=== PATIENT | male | born 1940 | race Caucasian/White ===

== ENCOUNTER 2017-03-22 12:30 | Outpatient (RCR) | payer MEDICARE, SELFPAY ==
--- NOTE | 2017-03-09 15:16 | HP.PTEVAL_ITS ---
Patient's Visit Information JIMMIE JAIN is a 76 year old M referred to Physical Therapy by Chino Azar MD with a diagnosis of Left Hip Pinning 02/18/17. Date of Evaluation: 03/09/17 Physical Therapist: Mary Luna - Visit Plan Frequency: 2x /Week Duration: 3 Weeks Plan: Focus on LE strength with functional mobility - Subjective Subjective: Fell at home on the driveway was transferred to [facility] and then was transferred to [place]- had the pinning by Dr. Azar and then they sent him back to [facility] for rehab. Was in [facility] rehab for about a week then headed home. One story home with his with 3 stairs to get in which he built with [address] secondary to Macular Degeneration but is fully I. Wants to get back to doing all the normal things such as getting on the tractor to mow the lawn. Patient reports that the hip was painful until today. He got up and now it doesn't hurt. pain is located on the lateral aspect of the hip. Worst:5/10 Agg: turning wrong Best: 0/10 Eases: Tylenol, not twisting. Describes the pain as dull and constant hurt. No radiating pain- no N/T. L4- L5 are partially crushed so he gets up and moves a lot to maintain comfort. Sleep: not disturbed- taking Tylenol before bed. Went back to see MD who was happy with everything. Took x-rays and all is good. PMHx/Meds: no changes since at [facility]. - Objective Posture: FH, RS, Increased kyphosis. Gait: slightly antalgic- FWW- decreased stance on the left LE. Stairs: asc/desc 8 recip with 2 HR- poor control. HR/ TR: able without incidence. Balance: WS but unable to SLS. ROM: WNL. Sensation: WNl. Strength: Ankle: 5/5, Knee: 5/5, Hip: 4/5 throughout Core: fair - Goals Goal 1:: Patient will be I with HEP and progression Goal Time Frame: 4-6 Weeks Goal 2:: Patient will ambulate >300 feet with a normalized gait pattern with LRD Goal Time Frame: 4-6 Weeks Goal 3:: Patient will asc/desc 8 recip with 1 HR and good control Goal Time Frame: 4-6 Weeks Goal 4:: Patient will report return to all ADL's with 0/10 pain Goal Time Frame: 4-6 Weeks - Rehabilitation Potential Physical Therapy Diagnosis: Patient presents with hypomobility s/p left hip pinning- she has decreased strength and functional mobility. Rehabilitation Potential: Good - Anticipated Interventions Patient/Client Instruction: Educate patient on: Benefits of Fitness Program For the Purpose of:: To improve performance and independence with ADL's Therapeutic Exercise to Include: Strength training, Endurance training, Balance training, Agility training, Body mechanics, Postural training, Gait and locomotor training, Dynamic Lumbar Stabilization For the Purpose of:: To improve muscle performance and motor function Cryotherapy (ice pack, ice massage): Yes Thermo therapy (hot pack): Yes Ultrasound (thermal/non thermal): No Thank you for the opportunity to evaluate your patient. For Medicare and Medicare HMO plans, please review the plan of care and approve it. It will need to be FAXED BACK to us at [phone] for Medicare purposes. Please let me know if there are questions or concerns regarding this plan of care. Physician Signature: Date:
--- NOTE | 2017-06-13 10:48 | HP.PT.NRP ---
HP - Discharge Summary (1) - Patient Information JIMMIE JAIN was seen in my office for initial evaluation on 03/09/17. The following Plan of Care was established for this patient: Initial Frequency: 2x /Week Initial Duration: 3 Weeks - Anticipated Interventions Patient/Client Instruction: Educate patient on: Benefits of Fitness Program For the Purpose of:: To improve performance and independence with ADL's Therapeutic Exercise to Include: Strength training, Endurance training, Balance training, Agility training, Body mechanics, Postural training, Gait and locomotor training, Dynamic Lumbar Stabilization For the Purpose of:: To improve muscle performance and motor function Cryotherapy (ice pack, ice massage): Yes Thermo therapy (hot pack): Yes Ultrasound (thermal/non thermal): No This patient was last seen in our office . Pertinent comments regarding their Physical therapy will appear below: Patient has not attended therapy in 4 weeks and is appropriate for d/c at this time. At this point I will be discontinuing this patient from physical therapy. I would be happy to see this patient again in the future if found appropriate by the physician. Thank you! Mary Luna
== END 2017-03-22 19:00 | disposition home or self-care (01) ==
LOC: PT 12:30
PROVIDERS: Family Provider Internal Medicine; PCP Internal Medicine; Visit Provider Orthopaedic Surgery
DX: S72.002D Fracture of unspecified part of neck of left femur, subsequent encounter for closed fracture with routine healing (principal)
CPT/HCPCS: 97110; 97162

== ENCOUNTER 2018-11-13 03:05 | Emergency (ER) | payer MEDICARE, SELFPAY ==
[2018-11-13 03:10] VITALS: BP 123/71; PULSE 84; RESP 18; TEMP 36.5; O2SAT 93; BMI 17.9
--- NOTE | 2018-11-13 03:57 | CT_ITS ---
STUDY: CT BRAIN WITHOUT CONTRAST REASON FOR EXAM: Male, 78 years old. Fall RADIATION DOSAGE (If Supplied By Facility): CTDIvol = ( 44.99 ) mGy, DLP = ( 745.49 ) mGycm TECHNIQUE: Transaxial CT imaging of the brain was performed without administration of intravenous contrast material. Individualized dose optimization techniques were used for this CT. COMPARISON: No relevant priors. FINDINGS: Normal soft tissue structures. Normal calvarium. Right frontal encephalomalacia. There is mild cerebral atrophy with widening of the extra-axial spaces and ventricular dilatation. There are areas of decreased attenuation within the white matter tracts of the supratentorial brain, consistent with microvascular disease changes. Normal basal ganglia and thalami. Normal brainstem. There is mild cerebellar atrophy. There is no intracranial hemorrhage. There are no findings of an acute ischemic infarction. Normal visualized paranasal sinuses. Opacification of the bilateral inferior mastoid air cells with mild septal sclerosis consistent with chronic disease. Normal appearance of ossicles. Intracranial arteriosclerosis of the carotid and vertebral arteries. There are postoperative orbital changes. Its CT/Brain/Head without Contrast IMPRESSION: Chronic involutional changes of the brain. 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 There is no acute intracranial pathology. Electronically Signed: Patti Serrano MD at 4:48 EDT , Service support ,
--- NOTE | 2018-11-13 03:57 | EKG12_ITS ---
Test Reason : FALL Blood Pressure : / mmHG Vent. Rate : 078 BPM Atrial Rate : 078 BPM P-R Int : 148 ms QRS Dur : 076 ms QT Int : 386 ms P-R-T Axes : 062 -09 078 degrees QTc Int : 440 ms Normal sinus rhythm Normal ECG Confirmed by MARYANN SEGURA, BRITTON ([id number]), photographic editor HAROON WELCH ([id number]) on 11/14/2018 9:21:47 AM Referred By: ROBYN Confirmed By:BRITTON WOLF MD
--- NOTE | 2018-11-13 03:59 | ED.DCSUM_ITS ---
- ER Visit Summary Date of Service: 11/13/18 Chief Complaint: Fall History of Present Illness: The patient is a 78 M who presents with a fall that occurred tonight. Patient does not remember what caused him to fall. Patient is unsure if he lost consciousness. Patient was having some shortness of breath prior to the fall. Patient was sitting on the toilet when he fell. Patient landed on his right shoulder. Patient states the pain is worse with any movement of his right shoulder. Patient denies any head injury. Patient denies any paresthesias. Patient does admit to some general weakness. Patient denies any recent fevers or chills. Physical Examination: Vital signs are stable. Patient is afebrile. Patient is in no acute distress. Oral mucosa is pink and moist. Neck is supple. Trachea is midline. There is no JVD noted. Heart was regular rate and rhythm. Lungs are clear and equal bilaterally. Abdomen is soft. Bowel sounds are normal. There is no tenderness noted. Musculoskeletal exam reveals tenderness over the right distal clavicle. Range of motion of the right shoulder was limited in all motion secondary to pain. Cranial nerves II through XII are intact. There are no focal motor or sensory deficits noted. Test Results: CT scan of the brain was obtained. There is no acute intracranial abnormality. There is a remote infarct in the left frontal lobe. Chest x-ray does not show any acute cardiopulmonary process. There are chronic changes consistent with COPD. There is no pneumothorax noted. X-rays of the right clavicle were obtained. There is a displaced midclavicular fracture. CBC shows a mild anemia with hemoglobin of 11.7 and hematocrit 35.3. BUN was slightly elevated at 46. EKG showed a normal sinus rhythm with a rate of 78. There are no acute ST or T wave changes. This was unchanged compared to previous EKG dated 02/17/2017. Troponin was normal. Emergency Department Course and Treatment: Patient was given a dose of [place] here. Patient was placed in a sling for his right clavicle fracture. Patient was given a prescription for [place]. Patient was instructed to follow-up with his primary care physician in 5 to 7 days. Patient and family understood and were agreeable with the plan. All questions were answered. As the patient was being discharged he stood up and had a syncopal episode. This was witnessed by the nurse caring for him. Patient patient will be admitted. Patient and family are requesting transfer to [facility]. Case was discussed with the hospitalist there, Dr. Solares. He accepted the patient for transfer. Patient will be transferred there. Patient understood and was agreeable with the plan. All questions were answered. Disposition: Transfer to [facility] Impression: 1. Right clavicle fracture 2. Fall 3. Syncope 4. Upper GI bleed This note was generated with Clip dictation software. It may contain incorrect words, spelling, and punctuation that were not noted in review of the chart prior to signing ED Disposition - Plan for ED Patient: Disposition: Acute Care Hospital - Other Diagnosis: Right clavicle fracture, Fall, Gastrointestinal bleeding, upper, Syncope and collapse Instructions: FALL, Uncertain Cause Prescriptions: Hydrocodone Bitart/Apap 5-325 [[place] 5MG-325MG] 1 tab PO Q6H PRN PRN 3 Days #10 tab PRN Reason: Pain Prescription Printed Referrals: Shayna Donohue MD [Primary Care Provider] - 3-5 Days
[2018-11-13] MEDS: Morphine 4 MG/ML Syringe IV (04:14)
[2018-11-13 04:26] LABS: Absolute Lymphocyte Count 1.08 X10^3/uL (0.83-4.51); Absolute Neutrophil Count 8.2 X10^3/uL (2.0-7.7); Basophil# 0.04 X10^3/uL; Basophil% 0.4 % (0-1); Eosinophil# 0.03 X10^3/uL; Eosinophils% 0.3 % (0-5); Hematocrit 35.3 % (40-54); Hemoglobin 11.7 g/dL (13.0-16.5); Lymphocyte # 1.08 X10^3/ul (4.0); Lymphocyte % 10.8 % (19-41); Mean Corp Hgb Conc 33.1 g/dL (32-36); Mean Corpuscular Hgb 29.8 pg (27.0-32.0); Mean Corpuscular Volume 89.8 fL (80-94); Mean Platelet Vol. 9.9 fl (6.2-12.0); Monocyte# 0.62 X10^3/uL; Monocyte% 6.2 % (0-10); NRBC Flagged by Analyzer 0 % (0-5); Neutrophil # 8.19 X10^3/uL (2.7-7.7); Neutrophil % 81.9 % (47-70); Platelet Count 163 K/mm3 (150-450); RBC Distribution Width CV 15.3 % (11.6-14.6); RBC Distribution Width SD 50.6 fl (35.1-43.9); Red Blood Count 3.93 M/mm3 (4.6-6.2)
--- NOTE | 2018-11-13 04:40 | RAD_ITS ---
STUDY: X-RAY CHEST REASON FOR EXAM: Male, 78 years old. Fall exam, shortness of breath TECHNIQUE: Frontal and lateral views of the chest. 3 images COMPARISON: 02/17/2017. 06/20/2015. Single frontal views only FINDINGS: There is an acute displaced fracture of the right mid clavicle. There is no demonstrated pneumothorax. There is demineralization of osseous structures. Emphysema. Linear interstitial changes likely scarring without change. Mild blunting of the right costophrenic angle. Normal size heart. Normal mediastinum and nkechi. Normal visualized pulmonary arteries. Normal visualized aortic arch and descending thoracic aorta. There is demineralization of the osseous structures. Loss of vertebral body height of the mid and lower thoracic spine without significant change. Normal visualized ribs, clavicles, and shoulders. There is no demonstrated abnormality of the visualized soft tissue structures of the upper abdomen. RAD/Chest PA and Lateral IMPRESSION: COPD/emphysema. Displaced right midclavicular fracture. Osteoporosis, multilevel compression injury of the thoracic and upper lumbar spine. There is no demonstrated pneumothorax. Electronically Signed: Patti Serrano MD at 5:17 EDT , Service support ,
--- NOTE | 2018-11-13 04:40 | RAD_ITS ---
STUDY: X-RAY - RIGHT CLAVICLE REASON FOR EXAM: Male, 78 years old. Fall exam, right shoulder pain TECHNIQUE: 2 view(s) of the clavicle. COMPARISON: None. FINDINGS: Acute foreshortened inferiorly displaced fracture of the right mid clavicle, foreshortening by 3.6 cm length. There is degenerative arthrosis of the acromioclavicular joint without inferior osseous prominence. Normal visualized sternoclavicular articulation. There is demineralization of osseous structures. There is no demonstrated pneumothorax. RAD/Clavicle IMPRESSION: Acute inferiorly displaced foreshortened mid clavicular fracture. Osteoporosis and degenerative changes. Electronically Signed: Patti Serrano MD at 5:19 EDT , Service support ,
[2018-11-13 04:41] LABS: Anion Gap 8 (5-15); BUN 46 mg/dL (7-18); BUN/Creat Ratio 53.7 RATIO (10-20); Calcium,Total 7.9 mg/dL (8.5-10.1); Chloride 108 mmol/L (98-107); Creatinine, Serum 0.86 mg/dL (0.70-1.30); EST Glomerular Filtration Rate 92 mL/min (>60); Est Glom Filt Rate - Afr Amer 111 mL/min (>60); Estimated Creatinine Clearance 63.59 ml/min; Glucose 106 mg/dL (74-106); Potassium 4.2 mmol/L (3.5-5.1); Sodium Level 142 mmol/L (136-145)
[2018-11-13 06:14] VITALS: BP 88/56; PULSE 78; RESP 14; O2SAT 92
--- NOTE | 2018-11-13 06:14 | ED.RN ---
PT REFUSED TO GIVE URINE, FAMILY UPSET ABOUT LENGTH OF TIME VISIT IS TAKING.
[2018-11-13 06:29] VITALS: BP 93/56; PULSE 88; RESP 24; O2SAT 98
[2018-11-13] MEDS: 0.9% Normal Saline 1,000 ML 1000 ML IV (06:36)
--- NOTE | 2018-11-13 06:36 | ED.RN ---
ATTEMPTED TO WALK PT TO BATHROOM WITH AID. PT GOT TO DOOR OF ROOM AND PASSED OUT. WHEELCHAIR WAS BROUGHT TO ROOM. PT WITH SNORING RESPIRATIONS. PT PLACED BACK IN BED, MONITOR PLACED AND VITAL SIGNS TAKEN. PT SYNCOPAL EPISODE LASTED APPROX 30 SECONDS. FAMILY MEMBER AT BEDSIDE AND UPDATED. PENDING ADMISSION.
[2018-11-13 06:40] LABS: Bedside Glucose 131 mg/dL (70-110)
[2018-11-13] MEDS: HYDROcodone Bitartrate/Apap 5/325 Tablet PO (06:46)
[2018-11-13 09:23] VITALS: BP 105/69; PULSE 90; RESP 16; RESP 18; O2SAT 97
== END 2018-11-13 09:27 | disposition short-term general hospital (02) ==
PROVIDERS: Emergency Provider Emergency Medicine; Family Provider Internal Medicine; PCP Internal Medicine
DX: S42.021A Displaced fracture of shaft of right clavicle, initial encounter for closed fracture (principal); W18.11XA Fall from or off toilet without subsequent striking against object, initial encounter; Y93.89 Activity, other specified; R55 Syncope and collapse; K92.2 Gastrointestinal hemorrhage, unspecified; J44.9 Chronic obstructive pulmonary disease, unspecified; Z79.82 Long term (current) use of aspirin; Z86.73 Personal history of transient ischemic attack (TIA), and cerebral infarction without residual deficits
CPT/HCPCS: 70450; 71046; 73000; 80048; 82274; 82962; 84484; 85025; 93005; 96361; 96374; 99285; J7030; A4216

== ENCOUNTER 2021-06-01 15:07 | Emergency (ER) | payer MEDICARE, SELFPAY ==
[2021-06-01 15:09] VITALS: BP 144/77; PULSE 87; RESP 16; TEMP 36.8; O2SAT 95; BMI 18.1
--- NOTE | 2021-06-01 15:27 | EKG12_ITS ---
Test Reason : SOB Blood Pressure : / mmHG Vent. Rate : 084 BPM Atrial Rate : 084 BPM P-R Int : 182 ms QRS Dur : 080 ms QT Int : 388 ms P-R-T Axes : 084 -27 083 degrees QTc Int : 458 ms Normal sinus rhythm Normal ECG Confirmed by MARYANN SEGURA, BRITTON ([id number]), publication editor HAROON WELCH ([id number]) on 06/02/2021 10:30:16 AM Referred By: JAG/NUSRAT Confirmed By:BRITTON WOLF MD
--- NOTE | 2021-06-01 15:29 | EDS_ITS ---
HPI History of Present Illness Chief Complaint: Shortness of Breath Detail of Chief Complaint: Shortness of breath and respiratory distress Informant: patient and family (Granddaughter) Onset/Context/Timing Onset: Weeks (1 week) Context: unknown Timing: Continuous and Waxes and wanes Quality: Positive for Dyspnea on exertion and Wheezing; Negative for Orthopnea and PND Current Severity: Moderate Maximum Severity: Severe Worsened by: Exertion (Patient presently is only able to walk 20 feet before he has to stop because of shortness of breath) and Coughing; Not Worsened By Lying flat Relieved by: Nothing Associated Symptoms cough; Negative for ear pain, fever, sore throat, subjective, chills or sweats Chest Pain: Positive for None Narrative Narrative: Patient is a 81-year-old male who present lives alone. He has history of COPD. He is on no medication other than Tylenol. His was admitted to a nursing facility. Since she was admitted October or November of last year he has been smoking. He had not been smoking for some time prior to this. He does admit to coughing. States cough is productive. 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 He has been vaccinated for COVID. Is uncertain whether he received the influenza vaccine this year or Pneumovax. He denies headache, visual, ocular auditory symptoms. He denies chest discomfort. He denies leg pain, swelling or discoloration. He denies history o f VTE. He denies risk factors. He denies nausea, vomiting or diarrhea. He denies dysuria, frequency, urgency or hematuria. Granddaughter is concerned because he looks very thin and believes he has lost 10 pounds over the past month unintentionally. PE Risk Factors: Negative for Cancer, OCP + Smoking + > 35, Prior DVT or PE, Recent immobilization, Recent surgery and Recent travel Prior similar symptoms: No Recent Illness/Hospitalization: No PFSH PFSH Home Medications C,E,zinc,copper [id number] 1 ea PO DAILY 11/13/18 [History Last Taken Unknown] aspirin 81 mg PO DAILY 11/13/18 [History Last Taken Unknown] doxycycline monohydrate 100 mg PO BID #10 capsule 06/01/21 [Rx Last Taken Unknown] fluticasone propion-salmeterol [Advair Diskus] 1 inh INHALATION BID #1 ea 06/01/21 [Rx Last Taken Unknown] prednisone 60 mg PO DAILY #15 tablet 06/01/21 [Rx Last Taken Unknown] Allergy/AdvReac Type Severity Reaction Status Date / Time fentanyl AdvReac Other Verified 06/01/21 15:09 oxycodone AdvReac Other Verified 06/01/21 15:09 sleeping pills AdvReac Other Uncoded 06/01/21 15:09 Social History (Updated 06/01/21 @ 15:[address] Rashawn Cook MD) household members: none Smoking Status: Current every day smoker tobacco type: cigarettes substance use type: does not use ROS ROS ED Constitutional Constitutional ED: Reports weight loss; Denies chills, fever(s) or sweats Eyes Eyes: Reports other Details: Patient is legally blind ; Denies blurry vision, change in vision or diplopia ENT ENT ED: Denies ear pain, rhinorrhea or sore throat Cardiovascular Cardiovascular: Denies chest pain, orthopnea, palpitations, paroxysmal nocturnal dyspnea or racing heartbeat Respiratory/Chest Respiratory/Chest: Reports cough, dyspnea, dyspnea on exertion and sputum; Denies orthopnea or paroxysmal nocturnal dyspnea Gastrointestinal Gastrointestinal: Reports other Details: Patient does not know the color of her stool because he cannot see the color of the stool. ; Denies abdominal pain, constipation, diarrhea, nausea or vomiting Genitourinary Genitourinary ED: Denies dysuria or urinary frequency Musculoskeletal Musculoskeletal: Denies arthralgias, back pain, myalgias or neck pain Integumentary Denies rash Neurologic Neurologic: Reports weakness; Denies headache(s) or paresthesias Endocrine Endocrinology: Denies polydipsia, polyphagia or polyuria Hematologic/Lymphatic Hematologic/Lymphatic: Denies easy bleeding or easy bruising EXAM Physical Exam Const Vital Signs: 06/01/21 15:09 06/01/21 15:40 06/01/21 15:44 Temperature 98.2 F Temperature Source Temporal Pulse Rate 87 73 Respiratory Rate 16 18 22 H Respiratory Effort Short of Breath Respiratory Depth Shallow Respiratory Pattern Normal Tachypnea Blood Pressure 144/77 H Blood Pressure Mean 99 Pulse Ox 95 94 Oxygen Delivery Method Room Air Room Air 06/01/21 16:31 Temperature 98.4 F Temperature Source Temporal Pulse Rate 78 Respiratory Rate 16 Respiratory Effort Respiratory Depth Respiratory Pattern Blood Pressure 142/78 H Blood Pressure Mean 99 Pulse Ox 95 Oxygen Delivery Method Room Air Positive well developed and cachectic General Appearance ED: well developed and cachectic; Negative for NAD Nutritional Appearance: cachectic HEENT Reports TM's clear and dry mucous membranes; Denies moist mucous membranes HEENT Narrative: Uvula midline. There is no angioedema. atraumatic; Negative for tenderness Tympanic Membrane ED: Yes TM's clear Mouth ED: Yes dry mucous membranes Mouth: dry mucous membranes Eyes PERRL and EOMs intact bilaterally General Eye ED: Negative for pale conjunctiva or scleral icterus Neck no lymphadenopathy, supple, no meningeal signs and no JVD Neck Narrative: Trachea is midline. There is no in-store expiratory stridor. Resp No normal respiratory effort and No clear to auscultation bilaterally Effort and Inspection: other Expiratory phase is prolonged significantly. ; Negative for pain with movement Auscultation: rales bilateral base, wheezes expiratory wheezes, scattered wheezes and throughout and diminished lung sounds Cardio regular rate, regular rhythm, S1 normal heart sound, S2 normal heart sound and no murmurs GI non-tender, non-distended and no masses Auscultation: normoactive bowel sounds Palpation: soft and tender Back/Spine no CVA tenderness and normal to inspection Extremity normal to inspection Extremity Narrative: Minimal bilateral pedal edema. General Extremety ED: Yes edema; Negative for tenderness General Extremity: edema Neuro oriented x3 and CN's II-XII intact bilaterally [place] Coma Scale: document GCS findings Spontaneous Obeys Commands Oriented 15 Sensorium / Orientation: alert Motor Exam: general weakness Psych mental status grossly normal Mood & Affect: depressed Skin no wounds General Skin Exam: Negative for jaundice Lesions: no lesions Rashes: no rashes MDM MDM MDM Narrative Medical decision making narrative: Patient with respiratory distress. Will obtain VBG to determine if patient is retaining CO2. He was treated with Solu- Medrol, DuoNeb and albuterol. Chest x-ray was obtained to evaluate for pneumonia. Doubt pneumothorax. EKG to rule out cardiac ischemia. CBC to assess white count and rule out anemia. Since he had a 10 pound unintentional weight loss comprehensive metabolic panel was obtained to assess electrolytes, renal function as well as calcium, and alkaline phosphatase since there is concerned this may be due to malignancy. Patient was reassessed at 03/13/2000. He is in no respiratory distress. His lungs are clear. He has fair movement of air bilaterally. He was informed of his results as well as his granddaughter. Plan is to instruct patient how to use an inhaler and discharged with prescription for prednisone, doxycycline and Advair. He is to follow-up with his primary care physician who is an physician assistant primary care at [facility] Lab Data Attestation: I reviewed the patient's lab results. Labs: Laboratory Results - last 24 hr 06/01/21 06/01/21 16:14 16:14 WBC 6.5 RBC 4.62 Hgb 14.9 Hct 42.7 MCV 92.4 MCH 32.3 H MCHC 34.9 RDW Std Deviation 47.0 H RDW Coeff of Miya 13.8 Plt Count 204 MPV 9.7 Immature Gran % (Auto) 0.200 Neut % (Auto) 69.1 Lymph % (Auto) 20.9 Rankin % (Auto) 9.0 Eos % (Auto) 0.5 Baso % (Auto) 0.3 Absolute Neuts (auto) 4.5 Absolute Lymphs (auto) 1.37 Nucleated RBC % 0 Sodium 133 L Potassium 3.5 Chloride 98 Carbon Dioxide 28.0 Anion Gap 7 BUN 10 Creatinine 0.63 L Estim Creat Clear Calc 48.32 Est GFR (MDRD) Af Amer 158 Est GFR (MDRD) Non-Af 131 BUN/Creatinine Ratio 16.0 Glucose 99 Calcium 8.6 VBG was obtained to assess for hypercapnia. Patient is breathing faster and 16 is actually tachypneic. His blood gas reveals a pH of 7.41, PCO2 40, PO2 of 34.7 bicarb 25.4 and a base excess of 0.7. Saturation 67.4%. This is a venous blood gas. ABG Data ABG results: ABG 06/01/21 16:19 Specimen Type KAVEH VBG pH 7.41 VBG pO2 35 VBG HCO3 25 VBG Total CO2 27 VBG O2 Sat (Calc) 67 VBG Base Excess 1 POC Mix VBG pCO2 Pt Tmp 40.0 L O2 Delivery Device Room Air Radiography Chest X-Ray - ED: 1 View and Read by ED Physician (Single view portable chest x- ray was independently interpreted by me as no acute process. Patient has hyperaeration with significant fibrotic changes and findings consistent with COPD. Cardiac silhouette and size unremarkable. 3 hilar regions unremarkable. [place] structures are unremarkable. The) Diagnostic Testing: Clinical Impression(s) from Imaging Studies Chest X-Ray 06/01/21 16:24 IMPRESSION: Emphysema without pneumonia or atelectasis. Electronically Signed: Juan J Knight MD at 16:38 EDT , EKG Initial EKG: Attestation: I personally reviewed and interpreted this EKG as follows: Interpretation: Sinus Rhythm (Ventricular rate 84. SD interval 182 ms. Cures duration 80 ms. QT duration 208 ms. [place] is normal. EKG is normal.) Discharge Plan Triage Chief Complaint: Shortness of Breath ED Provider: Rashawn Cook Dx/Rx/DC Orders Clinical Impression: Acute exacerbation of COPD with asthma, Bronchitis, Tobacco use Instructions: ED COPD Flare Prescriptions: New prednisone 20 MG tablet 60 mg PO DAILY Qty: 15 RF: 0 doxycycline monohydrate 100 MG capsule 100 mg PO BID Qty: 10 RF: 0 fluticasone propion-salmeterol [Advair Diskus] 250-50 mcg/dose blister with device 1 inh inhalation BID Qty: 1 RF: 2 No Action aspirin 81 MG tablet,delayed release (DR/EC) 81 mg PO DAILY RF: 0 C,E,zinc,copper [id number] 1 EACH capsule 1 ea PO DAILY RF: 0 Primary Care Provider: SUZANNE CHICAS Referrals: SUZANNE CHICAS MD [Primary Care Provider] - 3-5 Days Activity Restrictions/Additional Instructions: It is in your best interest to stop smoking immediately Disposition Disposition: Home, Self Care
[2021-06-01 15:40] VITALS: PULSE 73; RESP 18
[2021-06-01] MEDS: Ipratropium/Albuterol Sulfate 3 ML AMPUL.NEB INHALATION (15:40)
[2021-06-01] MEDS: Albuterol 2.5 MG/3 ML VIAL.NEB. INHALATION ×3 (15:42→15:58)
[2021-06-01 15:44] VITALS: RESP 22; O2SAT 94
[2021-06-01] MEDS: MethylPREDNISolone 125 MG/2 ML Vial IV (16:17)
--- NOTE | 2021-06-01 16:24 | RAD_ITS ---
STUDY: X-RAY CHEST REASON FOR EXAM: Male, 81 years old. resp distress TECHNIQUE: Single AP portable view of the chest. COMPARISON: 11/13/2018 FINDINGS: There is hyperinflation of the lungs consistent with chronic obstructive lung disease (COPD). There is no demonstrated pleural abnormality. Normal size heart. Normal mediastinum and nkechi. Normal visualized pulmonary arteries. Normal visualized aortic arch and descending thoracic aorta. Normal visualized thoracic spine. Healed fracture of the right clavicle. There is no demonstrated abnormality of the visualized soft tissue structures of the upper abdomen. RAD/Chest 1 View (Portable) IMPRESSION: Emphysema without pneumonia or atelectasis. Electronically Signed: Juan J Knight MD at 16:38 EDT ,
[2021-06-01 16:26] LABS: Blood Gas Specimen Type VEN; O2 Delivery Device Room Air; VBG BASE EXCESS 1 mmol/L (-1.0-3.5); VBG Bicarbonate 25 mmol/L (22-26); VBG PO2 35 mmHg (25-40); VBG SO2 67 % (50-70); VBG TCO2 27 mmol/L (23-33); VBG pH 7.41 (7.32-7.42)
[2021-06-01 16:29] LABS: Absolute Lymphocyte Count 1.37 X10^3/uL (0.83-4.51); Absolute Neutrophil Count 4.5 X10^3/uL (2.0-7.7); Basophil# 0.02 X10^3/uL; Basophil% 0.3 % (0-1); Eosinophil# 0.03 X10^3/uL; Eosinophils% 0.5 % (0-5); Hematocrit 42.7 % (40-54); Hemoglobin 14.9 g/dL (13.0-16.5); Lymphocyte # 1.37 X10^3/ul (0.83-4.51); Lymphocyte % 20.9 % (19-41); Mean Corp Hgb Conc 34.9 g/dL (32-36); Mean Corpuscular Hgb 32.3 pg (27.0-32.0); Mean Corpuscular Volume 92.4 fL (80-94); Mean Platelet Vol. 9.7 fl (6.2-12.0); Monocyte# 0.59 X10^3/uL; NRBC Flagged by Analyzer 0 % (0-5); Neutrophil # 4.52 X10^3/uL (2.7-7.7); Neutrophil % 69.1 % (47-70); Platelet Count 204 K/mm3 (150-450); RBC Distribution Width CV 13.8 % (11.6-14.6); Red Blood Count 4.62 M/mm3 (4.6-6.2); White Blood Count 6.5 K/mm3 (4.4-11.0)
[2021-06-01 16:31] VITALS: BP 142/78; PULSE 78; PULSE 80; RESP 16; TEMP 36.9; O2SAT 95
[2021-06-01 16:49] LABS: Anion Gap 7 (5-15); BUN 10 mg/dL (7-18); Calcium,Total 8.6 mg/dL (8.5-10.1); Chloride 98 mmol/L (98-107); Creatinine, Serum 0.63 mg/dL (0.70-1.30); EST Glomerular Filtration Rate 131 mL/min (>60); Est Glom Filt Rate - Afr Amer 158 mL/min (>60); Estimated Creatinine Clearance 48.32 ml/min; Glucose 99 mg/dL (74-106); Potassium 3.5 mmol/L (3.5-5.1); Sodium Level 133 mmol/L (136-145)
[2021-06-01 17:17] LABS: Lactic Acid 1.6 mmol/L (0.4-1.9)
--- NOTE | 2021-06-03 18:19 | CM.ED ---
ER RNCM DC F/u Call: Seen in ER 06.01.21 for SOB, H/o COPD-restarted smoking. Called patient listed number and answered by dtr Dagmar. States that patient is doing fine and that her dtr just took him over some dinner. States some shaking and aware can be side effect from the medication and told patient to just take it easy. No further issues or concerns voiced at this time. JOSE Vera
== END 2021-06-01 17:45 | disposition home or self-care (01) ==
PROVIDERS: Emergency Provider Emergency Medicine; PCP Internal Medicine; Visit Provider Emergency Medicine
DX: J44.1 Chronic obstructive pulmonary disease with (acute) exacerbation (principal); J40 Bronchitis, not specified as acute or chronic; F17.210 Nicotine dependence, cigarettes, uncomplicated
CPT/HCPCS: 71045; 80048; 82803; 83605; 85025; 87811; 93005; 94640; 96374; 99251; 99282; G0463

== ENCOUNTER 2021-08-08 13:35 | Emergency (ER) | payer MEDICARE, SELFPAY ==
[2021-08-08 13:37] VITALS: BP 166/113; PULSE 86; RESP 14; TEMP 36.5; BMI 15.8
--- NOTE | 2021-08-08 13:55 | EDS_ITS ---
HPI History of Present Illness Chief Complaint: Dental Narrative Narrative: 81-year-old male with right lower jaw swelling. He states he had a dental infection about a month ago and was initially treated with an antibiotic which he took 3 times a day. He states that his infection did get better and he was supposed to follow-up with a dentist but did not because he had loss of his . He has been dealing with that and has not been to the dentist yet. Patient notes that his tooth has been swelling again on the right lower jaw for about 3 days. No fevers or chills. No difficulty swallowing or breathing. No drainage. No new trauma. [facility] Medical History AAA (abdominal aortic aneurysm) COPD (chronic obstructive pulmonary disease) Stroke Home Medications C,E,zinc,copper [id number] 1 ea PO DAILY 11/13/18 [History Last Taken Unknown] aspirin 81 mg PO DAILY 11/13/18 [History Last Taken Unknown] doxycycline monohydrate 100 mg PO BID #10 capsule 06/01/21 [Rx Last Taken Unknown] fluticasone propion-salmeterol [Advair Diskus] 1 inh INHALATION BID #1 ea 06/01/21 [Rx Last Taken Unknown] prednisone 60 mg PO DAILY #15 tablet 06/01/21 [Rx Last Taken Unknown] amoxicillin-pot clavulanate 1 tab PO BID #20 tab 08/08/21 [Rx Last Taken Unknown] Allergy/AdvReac Type Severity Reaction Status Date / Time fentanyl AdvReac Other Verified 08/08/21 13:37 oxycodone AdvReac Other Verified 08/08/21 13:37 sleeping pills AdvReac Other Uncoded 08/08/21 13:37 Surgical History History of hip replacement Social History household members: none Smoking Status: Current every day smoker tobacco type: cigarettes substance use type: does not use ROS ROS ED Constitutional Constitutional ED: Denies chills or fever(s) Eyes Eyes: Denies blurry vision ENT ENT ED: Reports other Details: Dental pain ; Denies rhinorrhea or sore throat Cardiovascular Cardiovascular: Denies chest pain or palpitations Respiratory/Chest Respiratory/Chest: Denies cough or dyspnea Gastrointestinal Gastrointestinal: Denies abdominal pain, nausea or vomiting Genitourinary Genitourinary ED: Denies dysuria or hematuria Musculoskeletal Musculoskeletal: Denies myalgias Integumentary Denies rash Neurologic Neurologic: Denies headache(s) or weakness Psychiatric Psychiatric: Denies anxiety or depression EXAM Physical Exam Const Vital Signs: 08/08/21 13:37 Temperature 97.7 F L Temperature Source Temporal Pulse Rate 86 Respiratory Rate 14 Blood Pressure 166/113 H Blood Pressure Mean 130 Positive well nourished General Appearance ED: NAD HEENT HEENT Narrative: Tooth #45 appears to be extensively decayed. There is percu ssion tenderness and surrounding gingival edema. trauma Mouth ED: Yes lips normal, Yes tongue normal and Yes salivary gland normal Mouth: lips normal, tongue normal and salivary gland normal Teeth and Gingiva: abnormal tooth and associated gingiva Positive for tenderness, caries and poor dentition Throat: posterior oropharynx normal Eyes PERRL and EOMs intact bilaterally Neck no lymphadenopathy and supple Resp normal respiratory effort Cardio regular rate and regular rhythm GI normal to inspection, nondistended, normoactive bowel sounds Neuro oriented x3 and CN's II-XII intact bilaterally Sensorium / Orientation: alert Psych mental status grossly normal Skin no rashes or lesions noted MDM MDM MDM Narrative Medical decision making narrative: Patient presenting with dental pain. Appears to be about tooth #45. Patient has multiple dental caries and focal dental decay over this tooth particularly. Mild facial swelling associated with the gingival swelling. There was patent without stridor. No trismus. No sublingual or submandibular swelling. Patient unable to tell me which antibiotic he was on but he states he missed 3 times a day which makes he think it was likely clindamycin. Patient does not have a penicillin allergy and states he has no history of MRSA therefore I will place him on Augmentin. Patient given first dose in the ER. He will follow-up with his dentist. Impression: 1. Dental abscess 2. Dental pain 3. Dental caries Lab Data Attestation: I reviewed the patient's lab results. Discharge Plan Triage Chief Complaint: Dental ED Provider: Anderson Johnson Dx/Rx/DC Orders Instructions: Dental Abscess Prescriptions: New amoxicillin-pot clavulanate 875-125 mg tablet 1 tab PO BID Qty: 20 RF: 0 No Action aspirin 81 MG tablet,delayed release (DR/EC) 81 mg PO DAILY RF: 0 C,E,zinc,copper [id number] 1 EACH capsule 1 ea PO DAILY RF: 0 prednisone 20 MG tablet 60 mg PO DAILY Qty: 15 RF: 0 doxycycline monohydrate 100 MG capsule 100 mg PO BID Qty: 10 RF: 0 fluticasone propion-salmeterol [Advair Diskus] 250-50 mcg/dose blister with device 1 inh inhalation BID Qty: 1 RF: 2 Primary Care Provider: SUZANNE CHICAS Referrals: SUZANNE CHICAS MD [Primary Care Provider] - Disposition Disposition: Home, Self Care
[2021-08-08 14:00] VITALS: PULSE 64; RESP 17
[2021-08-08] MEDS: Amox/Clavulanate 875 MG Tablet PO (14:00)
== END 2021-08-08 14:07 | disposition home or self-care (01) ==
LOC: ED 14:06
PROVIDERS: Emergency Provider Student in an Organized Health Care Education/Training Program; PCP Internal Medicine; Visit Provider Student in an Organized Health Care Education/Training Program
DX: K04.7 Periapical abscess without sinus (principal); J44.9 Chronic obstructive pulmonary disease, unspecified; K02.9 Dental caries, unspecified; F17.210 Nicotine dependence, cigarettes, uncomplicated; Z79.82 Long term (current) use of aspirin; Z86.73 Personal history of transient ischemic attack (TIA), and cerebral infarction without residual deficits
CPT/HCPCS: 99283

== ENCOUNTER 2023-02-04 19:48 | Emergency (ER) | payer MEDICARE, MEDICAID, SELFPAY ==
[2023-02-04 19:52] VITALS: BP 157/72; PULSE 90; RESP 18; TEMP 36.8; O2SAT 100; BMI 15.0
--- NOTE | 2023-02-04 20:17 | EX.ED.DYSGE1 ---
HPI History of Present Illness Chief Complaint: Other, Pain/Inj Narrative Narrative: 82-year-old male presenting with agitation. Apparently this is his first day at [facility] in hospice. There was no nurses call to explain the situation. Apparently they did not call the family or the physician that was in charge. 911 was called because the patient to a chair and window. Patient states he just wanted something for headache. He is confused and alert to self and intermittently the day. He does not know the year. PFSH [facility] Medical History AAA (abdominal aortic aneurysm) COPD (chronic obstructive pulmonary disease) Stroke Home Medications aspirin 81 mg tablet,delayed release 81 mg PO DAILY 11/13/18 [History Last Taken Unknown] vit C,E,zinc,copper-omega3 250 mg-lutein 5 mg-zeaxanthin 1 mg capsule 1 ea PO DAILY 11/13/18 [History Last Taken Unknown] doxycycline monohydrate 100 mg capsule 100 mg PO BID #10 CAPSULES 06/01/21 [Rx Last Taken Unknown] fluticasone 250 mcg-salmeterol 50 mcg/dose blistr powdr for inhalation (Advair Diskus) 1 inh inhalation BID #1 ea 06/01/21 [Rx Last Taken Unknown] prednisone 20 mg tablet 60 mg (3 x 20 mg) PO DAILY #15 TABLETS 06/01/21 [Rx Last Taken Unknown] amoxicillin 875 mg-potassium clavulanate 125 mg tablet 1 tab PO BID #20 tabs 08/08/21 [Rx Last Taken Unknown] Allergy/AdvReac Type Severity Reaction Status Date / Time fentanyl AdvReac Other Verified 02/04/23 20:01 oxycodone AdvReac Other Verified 02/04/23 20:01 Surgical History History of hip replacement Social History household members: none Smoking Status: Current every day smoker tobacco type: cigarettes substance use type: does not use ROS ROS ED Constitutional Constitutional ED: Denies chills, fever(s) or sweats Eyes Eyes: Denies blurry vision or change in vision ENT ENT ED: Denies ear pain or sore throat Cardiovascular Cardiovascular: Denies chest pain, palpitations or racing heartbeat Respiratory/Chest Respiratory/Chest: Denies cough, dyspnea or sputum Gastrointestinal Gastrointestinal: Denies abdominal pain, constipation, diarrhea, nausea or vomiting Genitourinary Genitourinary ED: Denies dysuria, hematuria or urinary frequency Musculoskeletal Musculoskeletal: Denies arthralgias, myalgias or neck pain Integumentary Denies abscess, Abrasions or rash Neurologic Neurologic: Reports headache(s); Denies paresthesias or weakness Psychiatric Psychiatric: Denies anxiety, depression, suicidal ideation or suicidal thoughts Endocrine Endocrinology: Denies polydipsia or polyuria EXAM Physical Exam Const Vital Signs: 02/04/23 19:52 02/04/23 20:02 Temperature 98.2 F Temperature Source Temporal Pulse Rate 90 Respiratory Rate 18 Respiratory Effort Normal Non-Labored Respiratory Pattern Normal Blood Pressure 157/72 H Blood Pressure Mean 100 Pulse Ox 100 Oxygen Delivery Method Nasal Cannula Oxygen Flow Rate (L/min) 5 Positive well nourished General Appearance ED: NAD; Negative for pallor HEENT Reports moist mucous membranes Eyes PERRL and EOMs intact bilaterally General Eye ED: Negative for pale conjunctiva or scleral icterus Resp normal respiratory effort and clear to auscultation bilaterally Auscultation: Negative for rales, rhonchi or wheezes Cardio regular rate and regular rhythm Extremity normal to inspection Neuro CN's II-XII intact bilaterally and no sensory deficits noted Sensorium / Orientation: alert and orientation impaired Motor Exam: strength 5/5 throughout Psych Psych Narrative: Confused Skin no rashes or lesions noted General Skin Exam: Negative for jaundice or pallor MDM MDM MDM Narrative Medical decision making narrative: Patient presenting via EMS from [facility] for agitation. Report was called so nursing staff did reach out to the correction and it was stated that the patient became agitated and threw a chair. Apparently he was agitated because they would not give him Tylenol for headache. Did not call family noted to call the physician in charge. He was sent to the ED because they were concerned that they could not control them. Patient is calm here in the ED. No evidence of trauma. Vital signs are stable he is afebrile. Nursing staff spoke with his daughter he states they do not want any lab work or imaging done. He is going to be reevaluated by hospice. Patient was accepted by hospice and inpatient for respite. Patient remained stable here. He was transported in stable condition. Impression: 1. History of dementia 2. Agitation Discharge Plan Triage Chief Complaint: Other, Pain/Inj ED Provider: Anderson Johnson Dx/Rx/DC Orders Instructions: ED Confusion Prescriptions: No Action aspirin 81 MG tablet,delayed release (DR/EC) 81 mg PO DAILY C,E,zinc,copper [id number] 1 EACH capsule 1 ea PO DAILY prednisone 20 MG tablet 60 mg PO DAILY Qty: 15 0RF doxycycline monohydrate 100 MG capsule 100 mg PO BID Qty: 10 0RF fluticasone propion-salmeterol [Advair Diskus] 250-50 mcg/dose blister with device 1 inh inhalation BID Qty: 1 2RF amoxicillin-pot clavulanate 875-125 mg tablet 1 tab PO BID Qty: 20 0RF Primary Care Provider: SUZANNE CHICAS Referrals: SUZANNE CHICAS MD [Primary Care Provider] - Disposition Disposition: Home, Self Care
[2023-02-04] MEDS: Acetaminophen 325 MG Tablet 650 MG PO (20:35)
--- NOTE | 2023-02-04 21:28 | ED.RN ---
pt on phone with daughter, Dagmar.
--- NOTE | 2023-02-04 22:32 | ED.RN ---
Spoke to [facility] front desk worker Regine. She has spoken to daughter Dagmar and she has arranged for transport with [facility] to [facility]. She will notify daughter Dagmar. This nurse called report to [facility], and called [facility] to inform of transfer. Alverto updated with same and is happy with plan. Alverto has remained calm, cooperative and pleasant while in ER.
== END 2023-02-05 01:34 | disposition home or self-care (01) ==
PROVIDERS: Emergency Provider Student in an Organized Health Care Education/Training Program; PCP Internal Medicine; Visit Provider Student in an Organized Health Care Education/Training Program
DX: R45.1 Restlessness and agitation (principal); J44.9 Chronic obstructive pulmonary disease, unspecified; R41.0 Disorientation, unspecified; F17.210 Nicotine dependence, cigarettes, uncomplicated; Z86.73 Personal history of transient ischemic attack (TIA), and cerebral infarction without residual deficits
CPT/HCPCS: 99284